=== PATIENT | male | born 2000 | race Hispanic/Latino ===

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

== ENCOUNTER 2022-01-01 06:42 | Emergency (ER) | payer OTHER, SELFPAY ==
--- NOTE | 2022-01-01 07:54 | RAD REPORT ---
EXAM DESCRIPTION: US - Abdomen Exam Limited - 01/01/2022 7:41 am CLINICAL HISTORY: ABD PAIN COMPARISON: No comparisons FINDINGS: No gallstones, sludge or other abnormalities within the gallbladder lumen. There is no wal l thickening or pericholecystic fluid. No common duct stone or biliary tree dilatation identified. The liver is probably fatty infiltrated but is not fully assessed on this study. IMPRESSION: No gallbladder or biliary tree abnormality identified.
[2022-01-01] MEDS ORDERED: ONDANSETRON 4 MG/2 ML VIAL ONE (08:29)
[2022-01-01] MEDS ORDERED: NA CHLORIDE 0.9% 1,000 ML ONE (08:30)
[2022-01-01 09:10] LABS: Absolute Lymphocytes (CBC) 1.3 K/uL (0.7-4.9); Hematocrit 43.8 % (39.6-49.0); Lymphocytes % 9.7 % (15.3-44.8); MCV 83.5 fL (80-100); MPV 8.8 fL (7.6-11.3); RBC Red Blood Cell Count 5.25 M/uL (4.33-5.43)
--- NOTE | 2022-01-01 09:11 | RAD REPORT ---
EXAM DESCRIPTION: CT - Head Brain Wo Cont - 01/01/2022 9:04 am CLINICAL HISTORY: dizziness, headache, vomiting COMPARISON: No comparisons TECHNIQUE: Axial 5 mm thick images of the head were obtained without IV contrast. All CT scans are performed using dose optimization technique as appropriate and may include automated exposure control or mA/KV adjustment according to patient size. FINDINGS: No intracranial hemorrhage, mass, edema or shift of mid-line structures. No acute infarcti on changes seen. No abnormal extra-axial fluid collections. Ventricles are normal. Mastoid air cells and visualized portions of the paranasal sinuses are clear. No acute bony findings. IMPRESSION: Negative non-contrast CT head examination.
--- NOTE | 2022-01-01 09:20 | RAD REPORT ---
EXAM DESCRIPTION: CT - Abdomen Pelvis W Contrast - 01/01/2022 9:04 am CLINICAL HISTORY: abdominal pain, vomiting COMPARISON: No comparisons TECHNIQUE: Biphasic, helical CT imaging of the abdomen and pelvis was performed following 100 ml non -ionic IV contrast. No oral contrast administered. All CT scans are performed using dose optimization technique as appropriate and may include automated exposure control or mA/KV adjustment according to patient size. FINDINGS: No suspicious findings in the lung bases. The liver, spleen, and pancreas show no suspicious focal findings. Liver attenuation is mildly fatty infiltrated. Gallbladder and biliary tree are also without suspicious finding. Symmetric renal function is seen with no hydronephrosis or suspicious renal mass. No pyelonephritis o r acute parenchymal process. No bladder abnormalities. No adrenal abnormalities. No dilated bowel loops or bowel wall thickening. The appendix is normal. No free air, free fluid or i nflammatory stranding. No hernia, mass or bulky lymphadenopathy. A few small sub centimeter mesenter ic lymph nodes seen. No suspicious bony findings. IMPRESSION: Contrast enhanced CT abdomen and pelvis showing no acute or emergent finding.
[2022-01-01 09:24] LABS: Albumin 4.2 g/dL (3.4-5.0); Bilirubin Total 0.4 mg/dL (0.2-1.0); Potassium 3.7 mmol/L (3.5-5.1); Protein, Total 7.9 g/dL (6.4-8.2)
--- NOTE | 2022-01-01 09:41 | ER ---
Nurse's Notes [facility] Name: Roberto Akers Age: 21 yrs Sex: Male : 2000 Arrival Date: 01/01/2022 Time: 06:49 Bed 15 Private MD: Diagnosis: Upper abdominal pain, unspecified;Vomiting;Dizziness and giddiness Presentation: 01/01 07:16 Chief complaint: Patient states: began feeling dizzy yesterday, left work to go home vg1 and try and sleep it off; stated this morning woke up feeling nauseated and had an episode of vomiting x6. Denies diarrhea, states epigastric pain. Coronavirus screen: Vaccine status: Patient reports receiving the 1st dose of the Covid vaccine. Client denies travel out of the [place] in the last 14 days. Ebola Screen: Patient denies exposure to infectious person. Patient denies travel to an Ebola-affected area in the 21 days before illness onset. Initial Sepsis Screen: Does the patient meet any 2 criteria? HR > 90 bpm. Does the patient have a suspected source of infection? No. Patient's initial sepsis screen is negative. Risk Assessment: Do you want to hurt yourself or someone else? Patient reports no desire to harm self or others. Onset of symptoms was December 31, 2021. 07:16 Method Of Arrival: Wheelchair vg1 07:16 Acuity: RICKY 3 vg1 Triage Assessment: 07:18 Headache History: The patient has had previous headaches and this one is similar to vg1 previous episodes. General: Appears in no apparent distress. uncomfortable, Behavior is cooperative. Pain: Complains of pain in epigastric area Pain currently is 6 out of 10 on a pain scale. Pain began 2 hours ago. Also complains of nausea. Neuro: Level of Consciousness is awake, alert, obeys commands, Oriented to person, place, time, situation, Reports dizziness. GI: Abdomen is round non-distended, Reports nausea, vomiting, Patient currently denies diarrhea. Historical: - Allergies: 07:18 No Known Allergies; vg1 - Home Meds: 07:18 None [Active]; vg1 - PMHx: 07:18 None; vg1 - PSHx: 07:18 None; vg1 - Immunization history:: Client reports receiving the 1st dose of the Covid vaccine. - Social history:: Smoking status: Patient denies any tobacco usage or history of. - Family history:: not pertinent. - Hospitalizations: : No recent hospitalization is reported. Screenin:30 Abuse screen: Denies threats or abuse. Denies injuries from another. Nutritional ko1 screening: No deficits noted. Tuberculosis screening: No symptoms or risk factors identified. Fall Risk None identified. Assessment: 07:30 General: Appears distressed, obese, Behavior is calm, cooperative, appropriate for age, ko1 Reports Denies. Pain: Complains of pain in forehead and abdomen. Neuro: No deficits noted. Cardiovascular: No deficits noted. Respiratory: No deficits noted. GI: Reports upper abdominal pain, nausea, vomiting. : No deficits noted. EENT: No deficits noted. Derm: No deficits noted. Musculoskeletal: No deficits noted. 10:28 Reassessment: Patient states symptoms have improved. ko1 Vital Signs: 07:16 BP 123 / 76; Pulse 100; Resp 16; Temp 98.1(TE); Pulse Ox 100% on R/A; Weight 108.86 kg; vg1 Height 5 ft. 4 in. (162.56 cm); Pain 6/10; 07:30 BP 137 / 78; Pulse 125; Resp 24; Temp 98.9; Pulse Ox 99% ; ko1 09:38 BP 107 / 64; Pulse 82; Resp 14; Pulse Ox 98% ; Pain 7/10; ko1 07:16 Body Mass Index 41.20 (108.86 kg, 162.56 cm) vg1 Vitals: 07:30 Cardiac Rhythm Assessment Regular Sinus tach. ko1 Thornton Coma Score: 07:30 Eye Response: spontaneous(4). Verbal Response: oriented(5). Motor Response: obeys ko1 commands(6). Total: 15. ED Course: 06:49 Patient arrived in ED. ja2 07:00 Cristo Franklin MD is Attending Physician. rn 07:18 Triage completed. vg1 07:18 Arm band placed on. vg1 07:25 Yajaira Luis, ALEXEY is Primary Nurse. ko1 07:30 Patient taken to ultrasound. via wheelchair. ko1 07:30 Patient has correct armband on for positive identification. Bed in low position. Call ko1 light in reach. Side rails up X 1. 07:43 US Abdomen Limited In Process Unspecified. EDMS 08:05 SARS-COV-2 RT PCR (Document "Date of Onset" if Symptomatic) Sent. kc6 08:05 Flu Sent. kc6 08:18 Initial lab(s) drawn, by me, sent to lab. Missed attempt(s): 22 gauge in right ph antecubital area. Bleeding controlled, band aid applied, catheter tip intact. Inserted saline lock: 22 gauge in left antecubital area, using aseptic technique. Blood collected. 08:31 CBC with Diff Sent. kc6 08:31 CMP Sent. kc6 08:31 Lipase Sent. kc6 08:39 Lab(s) recollected, by me, sent to lab. ko1 09:06 CT Abd/Pelvis - IV Contrast Only In Process Unspecified. EDMS 09:06 CT Head Brain wo Cont In Process Unspecified. EDMS 10:09 No provider procedures requiring assistance completed. IV discontinued, intact, ko1 bleeding controlled, No redness/swelling at site. Pressure dressing applied. Administered Medications: 08:26 Drug: NS 0.9% 1000 ml Route: IV; Rate: 1 bolus; Site: left antecubital; ph 08:26 Drug: Zofran (Ondansetron) 4 mg Route: IVP; Site: left antecubital; ph 10:00 Drug: Meclizine 50 mg Route: PO; ko1 10:00 Drug: GI Cocktail without - (Maalox Suspension 30 ml, Lidocaine Liquid 2 % 15 ko1 ml) Route: PO; Medication: 07:30 VIS not applicable for this client. ko1 Outcome: 09:41 Discharge ordered by . rn 10:09 Condition: improved ko1 10:09 Discharge instructions given to patient, family, Instructed on discharge instructions, follow up and referral plans. medication usage, Demonstrated understanding of instructions, follow-up care, medications, Prescriptions given X 2. 10:47 Discharged to home ambulatory, with family. ko1 10:48 Patient left the ED. ko1 Signatures: Dispatcher [employer] EDCO Cristo Franklin MD MD rn Hall, Patricia, RN RN Whit Do, RN RN vg1 Felecia Mendenhall Kaitlyn kc6 Yajaira Luis RN RN ko1
--- NOTE | 2022-01-01 09:42 | EDPHYS ---
Physician Documentation [facility] Name: Roberto Akers Age: 21 yrs Sex: Male : 2000 Arrival Date: 01/01/2022 Time: 06:49 Bed 15 Private MD: ED Physician Cristo Franklin HPI: 01/01 09:01 This 21 yrs old Male presents to ER via Wheelchair with complaints of Abd rn pain, Dizziness, Weakness. 09:03 The patient presents with abdominal pain in the epigastric area. Onset: The rn symptoms/episode began/occurred yesterday. The symptoms do not radiate. Associated signs and symptoms: Pertinent positives: nausea and vomiting, Pertinent negatives: blood in stools, chest pain, diarrhea, fever, shortness of breath. The symptoms are described as achy, crampy. Modifying factors: The symptoms are alleviated by nothing, the symptoms are aggravated by Vomiting. Severity of pain: At its worst the pain was mild in the emergency department the pain is unchanged. The patient has not experienced similar symptoms in the past. The patient has not recently seen a physician. Pt reports dizziness, vomiting, abd pain. Began yesterday. No fever. NO known sick contacts. . Historical: - Allergies: 07:18 No Known Allergies; vg1 - Home Meds: 07:18 None [Active]; vg1 - PMHx: 07:18 None; vg1 - PSHx: 07:18 None; vg1 - Immunization history:: Client reports receiving the 1st dose of the Covid vaccine. - Social history:: Smoking status: Patient denies any tobacco usage or history of. - Family history:: not pertinent. - Hospitalizations: : No recent hospitalization is reported. ROS: 09:03 Constitutional: Negative for fever, chills, and weight loss, Eyes: Negative for injury, rn pain, redness, and discharge, Neck: Negative for injury, pain, and swelling, Cardiovascular: Negative for chest pain, palpitations, and edema, Respiratory: Negative for shortness of breath, cough, wheezing, and pleuritic chest pain, Abdomen/GI: + upper abd pain and vomiting : Negative for injury, bleeding, discharge, and swelling, MS/Extremity: Negative for injury and deformity, Skin: Negative for injury, rash, and discoloration, Neuro: Negative for numbness, tingling, and seizure. Exam: 09:03 Constitutional: This is a well developed, well nourished patient who is awake, alert, rn holding trash can Head/Face: Normocephalic, atraumatic. Cardiovascular: Tachycardic, regular Respiratory: Mild tachypnea Abdomen/GI: soft, + epigastric tenderness Skin: Warm, dry MS/ Extremity: Pulses equal, no cyanosis. Neuro: Awake and alert, GCS 15, oriented to person, place, time, and situation. Cranial nerves II-XII grossly intact. Motor strength 5/5 in all extremities. Sensory grossly intact. Vital Signs: 07:16 BP 123 / 76; Pulse 100; Resp 16; Temp 98.1(TE); Pulse Ox 100% on R/A; Weight 108.86 kg; vg1 Height 5 ft. 4 in. (162.56 cm); Pain 6/10; 07:30 BP 137 / 78; Pulse 125; Resp 24; Temp 98.9; Pulse Ox 99% ; ko1 09:38 BP 107 / 64; Pulse 82; Resp 14; Pulse Ox 98% ; Pain 7/10; ko1 07:16 Body Mass Index 41.20 (108.86 kg, 162.56 cm) vg1 [place] Coma Score: 07:30 Eye Response: spontaneous(4). Verbal Response: oriented(5). Motor Response: obeys ko1 commands(6). Total: 15. MDM: 07:00 Patient medically screened. rn 09:39 Differential diagnosis: appendicitis, cholecystitis, Cholelithiasis, diverticulitis, rn gastritis, gastroesophageal reflux disease, pancreatitis, vertigo, viral syndrome. Data reviewed: vital signs, nurses notes, lab test result(s), radiologic studies, CT scan, ultrasound, and as a result, I will discharge patient. Counseling: I had a detailed discussion with the patient and/or guardian regarding: the historical points, exam findings, and any diagnostic results supporting the discharge/admit diagnosis, lab results, radiology results, the need for outpatient follow up, to return to the emergency department if symptoms worsen or persist or if there are any questions or concerns that arise at home. Response to treatment: the patient's symptoms have mildly improved after treatment, and as a result, I will discharge patient. Special discussion: Based on the patient's Hx, exam, and Dx evaluation, there is no indication for emergent surgery or inpatient Tx. It is understood by the patient/guardian that if the Sx's persist or worsen they need to return immediately for re-evaluation. I discussed with the patient/guardian in detail that at this point there is no indication for admission to the hospital. It is understood, however, that if the symptoms persist or worsen the patient needs to return immediately for re-evaluation. Based on the history and exam findings, there is no indication for further emergent testing or inpatient evaluation. I discussed with the patient/guardian the need to see the primary care provider for further evaluation of the symptoms. ED course: Lab unable to run flu swab. No acute findings on ct abdomen/head, neg u/s. Will dc home with return precautions. . 01/01 07:25 Order name: CBC with Diff; Complete Time: 01/01 07:25 Order name: CMP; Complete Time: 01/01 07:25 Order name: Lipase; Complete Time: 01/01 07:25 Order name: CT Abd/Pelvis - IV Contrast Only; Complete Time: 01/01 07:25 Order name: SARS-COV-2 RT PCR (Document "Date of Onset" if Symptomatic); Complete Time: rn 01/01 07:25 Order name: Flu 01/01 07:25 Order name: IV Saline Lock; Complete Time: 01/01 07:25 Order name: Labs collected and sent; Complete Time: 01/01 07:25 Order name: US Abdomen Limited; Complete Time: 01/01 07:25 Order name: CT Head Brain wo Cont; Complete Time: 01/01 08:27 Order name: Labs - recollect needed: recollect all tubes; Complete Time: 09:11 bd Administered Medications: 08: Drug: NS 0.9% 1000 ml Route: IV; Rate: 1 bolus; Site: left antecubital; ph 08:26 Drug: Zofran (Ondansetron) 4 mg Route: IVP; Site: left antecubital; ph 10:00 Drug: Meclizine 50 mg Route: PO; ko1 10:00 Drug: GI Cocktail without - (Maalox Suspension 30 ml, Lidocaine Liquid 2 % 15 ko1 ml) Route: PO; Disposition Summary: 01/01/22 09:41 Discharge Ordered Location: Home rn Problem: new rn Symptoms: have improved rn Condition: Stable rn Diagnosis - Upper abdominal pain, unspecified rn - Vomiting rn - Dizziness and giddiness rn Followup: rn - With: Private Physician - When: As needed - Reason: Recheck today's complaints, Re-evaluation by your physician Discharge Instructions: - Discharge Summary Sheet rn - Abdominal Pain, Adult rn - Dizziness rn - Nausea and Vomiting, Adult rn Forms: - Medication Reconciliation Form rn - Thank You Letter rn - Antibiotic financial intern - Prescription Opioid Use rn - Family Work Release ko1 - School release form ko1 - Work release form ko1 Prescriptions: - ondansetron 4 mg Oral tablet,disintegrating - take 1 tablet by ORAL route every 8 hours As needed; 15 tablet; Refills: 0, rn Product Selection Permitted - Meclizine 25 mg Oral Tablet - take 1 tablet by ORAL route every 8 hours As needed; 15 tablet; Refills: 0, rn Product Selection Permitted Signatures: Dispatcher [employer] Sherlyn Rae Roman, MD MD rn Hall, Patricia RN RN Whit Do, RN RN vg1 Yajaira Luis RN RN ko1
[2022-01-01] MEDS ORDERED: MECLIZINE HCL 12.5 MG TAB ONE (10:07)
[2022-01-01] MEDS ORDERED: MAGNES/ALUMIN/SIMET 30ML UCUP ONE (10:08)
[2022-01-01] MEDS ORDERED: LIDOCAINE VISCOUS 2% SOLN 15 ML UDC ONE (10:08)
[2022-01-02 01:21] VITALS: TEMP 98.9
[2022-01-02 01:29] VITALS: BP 107/64; O2SAT 98
== END 2022-01-01 10:48 | disposition home or self-care (01) ==
LOC: ER 06:42
DX: R10.13 Epigastric pain (principal); R11.10 Vomiting, unspecified; R42 Dizziness and giddiness; Z20.822 Contact with and (suspected) exposure to COVID-19
CPT/HCPCS: 85025; 36415; 83690; 80053; 87804 ×2; 70450; 74177; 76705; 96374; 99284; U0003; Q9967; J8597; J7030; J2405

== ENCOUNTER 2022-09-24 21:36 | Emergency (ER) | payer OTHER ==
--- NOTE | 2022-09-25 00:20 | ER ---
Nurse's Notes [facility] Name: Roberto Akers Age: 21 yrs Sex: Male : 2000 Arrival Date: 09/24/2022 Time: 21:36 Bed 12 Private MD: Diagnosis: Cough Presentation: 09/24 22:15 Chief complaint: Patient states: MY SYMPTOMS STARTED ON THURSDAY, I HAD A FEVER AND THEN kd3 A RUNNY NOSE AND NOW I HAVE A COUGH. NO ONE ELSE AT HOME IS SICK. Coronavirus screen: Vaccine status: Patient reports receiving the 2nd dose of the covid vaccine. Ebola Screen: No symptoms or risks identified at this time. Initial Sepsis Screen: Does the patient meet any 2 criteria? No. Patient's initial sepsis screen is negative. Does the patient have a suspected source of infection? No. Patient's initial sepsis screen is negative. Risk Assessment: Do you want to hurt yourself or someone else? Patient reports no desire to harm self or others. Onset of symptoms was September 24, 2022. 22:15 Method Of Arrival: Ambulatory kd3 22:15 Acuity: RICKY 4 kd3 Triage Assessment: 22:16 General: Appears in no apparent distress. Behavior is calm, cooperative. Pain: Denies kd3 pain. Historical: - Allergies: 22:16 No Known Allergies; kd3 - Immunization history:: Adult Immunizations up to date. - Social history:: Smoking status: Patient denies any tobacco usage or history of. Screenin/08 00:32 [facility] ED Fall Risk Assessment (Adult) History of falling in the last 3 months, kd3 including since admission No falls in past 3 months (0 pts) Confusion or Disorientation No (0 pts) Intoxicated or Sedated No (0 pts) Impaired Gait No (0 pts) Mobility Assist Device Used No (0 pt) Altered Elimination No (0 pt) Score/Fall Risk Level 0 - 2 = Low Risk Maintained a safe environment. Abuse screen: Denies threats or abuse. Denies injuries from another. Nutritional screening: No deficits noted. Tuberculosis screening: No symptoms or risk factors identified. Vital Signs: 09/24 22:13 BP 164 / 85; Pulse 96; Resp 19; Temp 99.8(O); Pulse Ox 98% on R/A; Weight 117.93 kg; kd3 Height 5 ft. 4 in. ; 22:13 Body Mass Index 44.63 (117.93 kg, 162.56 cm) kd3 ED Course: 21:40 Patient arrived in ED. kj1 21:43 Vishal Patricia PA is PHCP. cp 21:43 Beto Weathers MD is Attending Physician. cp 22:16 Triage completed. kd3 22:16 Arm band placed on left wrist. kd3 09/25 00:31 Brie Musa, RN is Primary Nurse. kd3 00:33 Patient has correct armband on for positive identification. kd3 00:33 No provider procedures requiring assistance completed. Patient did not have IV access kd3 during this emergency room visit. Administered Medications: 09/24 22:30 Drug: Tessalon Perle PO 200 mg Route: PO; kd3 06 00:33 Follow up: Response: No adverse reaction kd3 Medication: 00:33 VIS not applicable for this client. kd3 Outcome: 00:19 Discharge ordered by MD. cp 00:33 Discharged to home ambulatory. kd3 00:33 Condition: stable 00:33 Discharge instructions given to patient, Instructed on discharge instructions, follow up and referral plans. Demonstrated understanding of instructions, follow-up care, medications, Prescriptions given X 1. 00:33 Patient left the ED. kd3 Signatures: Vishal Patricia PA PA cp Jackson, Kandis kj1 Brie Musa, RN RN kd3
--- NOTE | 2022-09-25 00:20 | EDPHYS ---
Physician Documentation [facility] Name: Roberto Akers Age: 21 yrs Sex: Male : 2000 Arrival Date: 09/24/2022 Time: 21:36 Bed 12 Private MD: ED Physician Beto Weathers HPI: 09/24 22:25 This 21 yrs old Male presents to ER via Ambulatory with complaints of Cough, cp Fever - chills. 22:25 The patient or guardian reports cough. cp 22:25 Onset: The symptoms/episode began/occurred 3 day(s) ago. Severity of symptoms: in the emergency department the symptoms are unchanged, despite home interventions. Associated signs and symptoms: Pertinent positives: rhinorrhea, sore throat, Pertinent negatives: fever. Historical: - Allergies: 22:16 No Known Allergies; kd3 - Immunization history:: Adult Immunizations up to date. - Social history:: Smoking status: Patient denies any tobacco usage or history of. ROS: 22:30 Constitutional: Negative for body aches, chills, fever, poor PO intake. cp 22:30 ENT: Positive for rhinorrhea, sore throat, Negative for ear pain, difficulty cp swallowing, difficulty handling secretions. 22:30 Eyes: Negative for injury, pain, redness, and discharge. cp 22:30 Respiratory: Positive for cough, with no reported sputum. 22:30 Abdomen/GI: Negative for abdominal pain, vomiting, diarrhea, constipation. 22:30 All other systems are negative. Exam: 22:35 Constitutional: The patient appears in no acute distress, alert, awake, non-toxic, well cp developed, well nourished, obese. 22:35 Head/Face: Normocephalic, atraumatic. cp 22:35 Eyes: Periorbital structures: appear normal, Conjunctiva: normal, no exudate, no injection, Sclera: no appreciated abnormality, Lids and lashes: appear normal, bilaterally. 22:35 ENT: External ear(s): are unremarkable, Ear canal(s): are normal, clear, TM's: dullness, bilaterally, Nose: is normal, Mouth: Lips: moist, Oral mucosa: pink and intact, moist, Posterior pharynx: Tonsils: with erythema, no enlargement, no exudate, erythema, that is mild, exudate, is not appreciated. 22:35 Neck: ROM/movement: is normal, is supple, without pain, no range of motions limitations, no meningismus, Lymph nodes: no appreciated lymphadenopathy. 22:35 Chest/axilla: Inspection: normal. 22:35 Cardiovascular: Rate: normal, Rhythm: regular. 22:35 Respiratory: the patient does not display signs of respiratory distress, Respirations: normal, no use of accessory muscles, no retractions, labored breathing, is not present, Breath sounds: decreased breath sounds, are not appreciated, stridor, is not appreciated, + upper airway congestion. wheezing: is not appreciated. 22:35 Abdomen/GI: Exam negative for discomfort, distension, guarding, Inspection: abdomen appears normal. 22:35 Skin: no rash present. Vital Signs: 22:13 BP 164 / 85; Pulse 96; Resp 19; Temp 99.8(O); Pulse Ox 98% on R/A; Weight 117.93 kg; kd3 Height 5 ft. 4 in. ; 22:13 Body Mass Index 44.63 (117.93 kg, 162.56 cm) kd3 MDM: 22:20 Patient medically screened. cp 09/25 00:19 Data reviewed: vital signs, nurses notes, lab test result(s). cp 00:19 Differential Diagnosis: Bronchitis Influenza Sinusitis Pharyngitis Otitis Media Viral cp Syndrome Pneumonia. Counseling: I had a detailed discussion with the patient and/or guardian regarding: the historical points, exam findings, and any diagnostic results supporting the discharge/admit diagnosis, lab results, to return to the emergency department if symptoms worsen or persist or if there are any questions or concerns that arise at home. 09/24 22:17 Order name: COVID-19 SARS RT PCR 3 09/24 22:17 Order name: Flu kd3 09/24 22:17 Order name: Strep kd3 09/24 23:06 Order name: Throat Culture EDMS Administered Medications: 09/24 22:30 Drug: Tessalon Perle PO 200 mg Route: PO; kd3 09/25 00:33 Follow up: Response: No adverse reaction kd3 Disposition Summary: 09/25/22 00:19 Discharge Ordered Location: Home cp Problem: new cp Symptoms: have improved cp Condition: Stable cp Diagnosis - Cough cp Followup: cp - With: Private Physician - When: 2 - 3 days - Reason: Worsening of condition Discharge Instructions: - Discharge Summary Sheet cp - Viral Respiratory Infection cp - Cough, Adult cp Forms: - Medication Reconciliation Form cp - Thank You Letter cp - Antibiotic Education cp - Prescription Opioid Use cp Prescriptions: - Bromfed DM 2-30-10 mg/5 mL Oral syrup - administer 10 milliliter by ORAL route every 6 hours as needed for cold cp symptoms; 180 milliliter; Refills: 0, Product Selection Permitted Signatures: Dispatcher [employer] EDMS Vishal Patricia PA PA cp Doucette, Kyli, RN RN kd3
[2022-09-25 01:47] VITALS: BP 164/85; TEMP 99.8; O2SAT 98
== END 2022-09-25 00:33 | disposition home or self-care (01) ==
LOC: ER 21:36
DX: R05.9 Cough, unspecified (principal); R07.0 Pain in throat; J34.89 Other specified disorders of nose and nasal sinuses; Z20.822 Contact with and (suspected) exposure to COVID-19
CPT/HCPCS: 87070; 87081; 87635; 87804; 99283